=== PATIENT | female | born 1950 ===

== ENCOUNTER 2018-01-12 04:23 | Outpatient (CLI) | payer SELFPAY ==
[2018-01-12 09:16] LABS: CHOL/HDL RATIO 3.6 (0.00-4.99)
[2018-01-12 09:20] LABS: HEMOGLOBIN A1C 5.1 % (4.5-6.2)
== END 2018-01-12 23:59 | disposition home or self-care (01) ==
LOC: HW WOMENS 04:23
DX: Z00.00 Encounter for general adult medical examination without abnormal findings (principal)
CPT/HCPCS: 36415

== ENCOUNTER 2019-03-01 03:56 | Outpatient (CLI) | payer SELFPAY ==
[2019-03-01 08:42] LABS: HEMOGLOBIN A1C 5.3 % (4.5-6.2)
[2019-03-01 08:57] LABS: CHOL/HDL RATIO 4.36 (0.00-4.99)
== END 2019-03-01 23:59 | disposition home or self-care (01) ==
LOC: HW HEART 03:56
DX: Z13.6 Encounter for screening for cardiovascular disorders (principal); I11.0 Hypertensive heart disease with heart failure; I50.9 Heart failure, unspecified; I25.2 Old myocardial infarction; Z87.891 Personal history of nicotine dependence
CPT/HCPCS: 36415